=== PATIENT | male | born 1985 | race Caucasian/White ===

== ENCOUNTER 2021-06-25 10:27 | Emergency (ER) | payer OTHER ==
[~2021-06-25] VITALS: Ht 180.3 cm; Wt 94.2 kg
[2021-06-25 10:27] VITALS: BP 150/87
--- NOTE | 2021-06-25 10:56 | PHYS DOC ---
General Adult EDM: Chief Complaint: ANXIETY/PANIC ATTACK HPI: HPI: 35-year-old male presents with intermittent WCT could go the bilateral upper extremities and bilateral lower extremities. The patient has noticed this over the last couple months. He has not had any today his upper legs bilaterally as well as his bilateral hands. He has also noticed some perioral tingling. Patient has not noticed a specific pattern. It does not happen with exertion. He is usually at rest. He does admit to the possibility of an emotional component as he has had more stress lately. Denies any history of significant back or neck injuries. Denies loss of bowel or bladder. Review of Systems: Review of Systems: Constitutional: Denies fever or chills Eyes: Denies change in visual acuity HENT: Denies nasal congestion or sore throat Respiratory: Denies cough or shortness of breath Cardiovascular: Denies chest pain or edema GI: Denies abdominal pain, nausea, vomiting, bloody stools or diarrhea : Denies dysuria Musculoskeletal: Denies back pain or joint pain Integument: Denies rash Neurologic: Bilateral upper and lower extremity tingling. Denies headache, focal weakness or sensory changes Endocrine: Denies polyuria or polydipsia Lymphatic: Denies swollen glands Psychiatric: Denies depression or anxiety Physical Exam: PE: Constitutional: Well developed, well nourished, no acute distress, non-toxic appearance. [] HENT: Normocephalic, atraumatic, bilateral external ears normal, oropharynx moist, no oral exudates, nose normal. [] Eyes: PERRLA, EOMI, conjunctiva normal, no discharge. [] Neck: Normal range of motion, no tenderness, supple, no stridor. [] Cardiovascular:Heart rate regular rhythm, no murmur [] Lungs & Thorax: Bilateral breath sounds clear to auscultation [] Abdomen: Bowel sounds normal, soft, no tenderness, no masses, no pulsatile masses. [] Skin: Warm, dry, no erythema, no rash. [] Back: No tenderness, no CVA tenderness. [] Extremities: No tenderness, no cyanosis, no clubbing, ROM intact, no edema. [] Neurologic: Alert and oriented X 3, normal motor function, normal sensory function, no focal deficits noted. [] Psychologic: Affect normal, judgement normal, mood anxious. [] EKG: EKG: [] Radiology/Procedures: Radiology/Procedures: [] Impressions: XR CERVICAL SPINE 2-3V, XR THORACOLUMBAR History: extremity numbness Comparison: None. Findings: No evidence of fracture. No destructive osseous lesion. Alignment is normal. Disc spaces are preserved. No significant facet disease. Soft tissues are unremarkable. IMPRESSION: 1. Unremarkable cervical and thoracolumbar spine series. Electronically signed by: Vicente Posada MD (06/25/2021 11:13 AM) [id number] DICTATED AND SIGNED BY: VICENTE POSADA MD DATE: 06/25/21 1111 CC: KHLOE WALLACE DO; JOYCE MCALLISTER ~MTH0 0 Heart Score: C/O Chest Pain: N/A Risk Factors: Risk Factors: DM, Current or recent (<one month) smoker, HTN, HLP, family history of CAD, obesity. Risk Scores: Score 0 - 3: 2.5% MACE over next 6 weeks - Discharge Home Score 4 - 6: 20.3% MACE over next 6 weeks - Admit for Clinical Observation Score 7 - 10: 72.7% MACE over next 6 weeks - Early Invasive Strategies Course & Med Decision Making: Course & Med Decision Making Pertinent Labs and Imaging studies reviewed. (See chart for details) The patient's x-rays were all negative. Labs are unremarkable. This is likely emotionally triggered. Advised patient consider consult for anxiety. He is stable for discharge at this time. [] Dragon Disclaimer: Dragon Disclaimer: This electronic medical record was generated, in whole or in part, using a voice recognition dictation system. Departure Departure: Impression: Primary Impression: Numbness and tingling Disposition: HOME / SELF CARE / HOMELESS Condition: STABLE Referrals: JOYCE MCALLISTER-VIK (PCP) Patient Instructions: Anxiety and Panic Attacks, [id number] KHLOE WALLACE DO Jun 25, 2021 10:56
--- NOTE | 2021-06-25 11:16 | RAD ---
XR CERVICAL SPINE 2-3V, XR THORACOLUMBAR History: extremity numbness Comparison: None. Findings: No evidence of fracture. No destructive osseous lesion. Alignment is normal. Disc spaces are preserved. No significant facet disease. Soft tissues are unremarkable. IMPRESSION: 1. Unremarkable cervical and thoracolumbar spine series. Electronically signed by: Vicente Posada MD (06/25/2021 11:13 AM) [id number]
[2021-06-25 11:30] LABS: BASO % 1 % (0-3); EOS % 0 % (0-3); HEMATOCRIT 50.7 % (39.0-53.0); LYMPH # 1.4 x10^3/uL (1.0-4.8); LYMPH % 29 % (24-48); MEAN CORPUSCULAR HEMOGLOBIN 30 pg (25-35); MEAN CORPUSCULAR HGB CONC 34 g/dL (31-37); MEAN CORPUSCULAR VOLUME 90 fL (79-100); MONO # 0.3 x10^3/uL (0.0-1.1); MONO % 6 % (0-9); NEUT # 3.1 x10^3uL (1.8-7.7); NEUT % 64 % (31-73); PLATELET COUNT 176 x10^3/uL (140-400); RED BLOOD COUNT 5.65 x10^6/uL (4.30-5.70); WHITE BLOOD COUNT 4.8 x10^3/uL (4.0-11.0)
[2021-06-25 11:32] LABS: CALCIUM 9.1 mg/dL (8.5-10.1); CREATININE 1.1 mg/dL (0.7-1.3); GFR 75.3; POTASSIUM 3.7 mmol/L (3.5-5.1)
[2021-06-25 11:38] LABS: ALBUMIN 4.4 g/dL (3.4-5.0); ALBUMIN/GLOBULIN RATIO 1.3 (1.0-1.7); TOTAL BILIRUBIN 0.6 mg/dL (0.2-1.0); TOTAL PROTEIN 7.7 g/dL (6.4-8.2)
[2021-06-25] MEDS ORDERED: HYDR25TA PO (11:59)
== END 2021-06-25 12:00 | disposition home or self-care (01) ==
LOC: ER 10:27
DX: R20.2 Paresthesia of skin (principal)
CPT/HCPCS: 36415; 72040; 72080; 80053; 85025; 99284

== ENCOUNTER → 2021-07-17 | Outpatient (CLI) | payer OTHER ==
[2021-06-25 10:27] VITALS: BP 150/87
[~2021-07-17] MED LIST: HYDR25TA PO
== END ==
LOC: LAB 09:48
PROVIDERS: ATTEND Nurse Practitioner Family
DX: M79.2 Neuralgia and neuritis, unspecified (principal); M62.81 Muscle weakness (generalized)
CPT/HCPCS: 83519; 84165; 86038; 86255; 84238